=== PATIENT | female | born 1995 | race Hispanic/Latino ===

== ENCOUNTER 2019-11-03 03:27 | Emergency (ER) | payer MEDICAID, OTHER ==
[2019-11-03] MEDS ORDERED: IBUPROFEN 400 MG TABLET ONE (04:06)
== END 2019-11-03 04:39 | disposition home or self-care (01) ==
LOC: EDH 03:27
DX: S63.501A Unspecified sprain of right wrist, initial encounter (principal); S30.0XXA Contusion of lower back and pelvis, initial encounter; Z98.890 Other specified postprocedural states; W18.39XA Other fall on same level, initial encounter; Y93.89 Activity, other specified; Y92.29 Other specified public building as the place of occurrence of the external cause; Y99.8 Other external cause status
CPT/HCPCS: 29125; 73110